=== PATIENT | male | born 1980 | race American Indian/Alaskan Native ===

== ENCOUNTER 2016-07-02 21:38 | Emergency (ER) | payer SELFPAY ==
[2016-07-02 22:14] VITALS: BP 125/92
[2016-07-03 00:21] LABS: Basophils % (Auto) 1.1 % (0.0-1.8); Eosinophils % (Auto) 5.6 % (0.0-4.3); Hemoglobin 14.9 gm/dl (11.8-15.2); Mean Corpuscular HGB Conc 33 % (32-34); Mean Corpuscular Hemoglobin 28 pg (28-32); Mean Corpuscular Volume 84 fl (84-94); Platelet Count 306 K/mm3 (140-440); Red Blood Count 5.39 M/mm3 (3.65-5.03); White Blood Count 6.4 K/mm3 (4.5-11.0)
[2016-07-03 00:22] LABS: BUN/Creatinine Ratio 11.25; Blood Urea Nitrogen 9 mg/dL (9-20); Calcium 8.7 mg/dL (8.4-10.2); Carbon Dioxide 26 mmol/L (22-30); Chloride 100.7 mmol/L (98-107); Glucose 87 mg/dL (75-100); Potassium 3.7 mmol/L (3.6-5.0); Sodium 139 mmol/L (137-145)
[2016-07-03 00:35] LABS: Anion Gap 16 mmol/L
[2016-07-03 03:05] LABS: Urine Drugs of Abuse Note Disclamer
[2016-07-03 03:55] LABS: Bilirubin,Urine NEG (Negative); Blood,Urine NEG (Negative); Ketones,Urine NEG (Negative); Leukocyte Esterase,Urine TR (Negative); Mucus,Urine 3+ /HPF; Nitrite,Urine NEG (Negative); Protein,Urine <15 mg/dL mg/dL (Negative)
--- NOTE | 2016-07-04 04:33 | ED Elopement Review ---
ED Pt Elopement review - Results review Lab results: Laboratory Tests 07/02/16 07/02/16 07/02/16 23:40 23:40 23:40 WBC 6.4 RBC 5.39 H Hgb 14.9 Hct 45.0 MCV 84 MCH 28 MCHC 33 RDW 15.0 Plt Count 306 Lymph % (Auto) 36.4 H [place] % (Auto) 7.6 H Eos % (Auto) 5.6 H Baso % (Auto) 1.1 Lymph # 2.3 [place] # 0.5 Eos # 0.4 Baso # 0.1 Seg Neutrophils % 49.3 Seg Neutrophils # 3.2 Sodium 139 Potassium 3.7 Chloride 100.7 Carbon Dioxide 26 Anion Gap 16 BUN 9 Creatinine 0.8 Estimated GFR > 60 BUN/Creatinine Ratio 11.25 Glucose 87 Calcium 8.7 Troponin T < 0.010 Urine Color Urine Turbidity Urine pH Ur Specific [place] Urine Protein Urine Glucose (UA) Urine Ketones Urine Blood Urine Nitrite Urine Bilirubin Urine Urobilinogen Ur Leukocyte Esterase Urine WBC (Auto) Urine RBC (Auto) U Epithel Cells (Auto) Calcium Oxalate Crystal Amorphous Crystals Urine Mucus Urine Opiates Screen Urine Methadone Screen Ur Barbiturates Screen Ur Phencyclidine Scrn Ur Amphetamines Screen U Benzodiazepines Scrn Urine Cocaine Screen U Marijuana (THC) Screen Drugs of Abuse Note Plasma/Serum Alcohol 07/02/16 07/03/16 07/03/16 23:40 02:03 02:03 WBC RBC Hgb Hct MCV MCH MCHC RDW Plt Count Lymph % (Auto) [place] % (Auto) Eos % (Auto) Baso % (Auto) Lymph # [place] # Eos # Baso # Seg Neutrophils % Seg Neutrophils # Sodium Potassium Chloride Carbon Dioxide Anion Gap BUN Creatinine Estimated GFR BUN/Creatinine Ratio Glucose Calcium Troponin T Urine Color Yellow Urine Turbidity Slightly-cloudy Urine pH 6.0 Ur Specific [place] 1.020 Urine Protein <15 mg/dl Urine Glucose (UA) Neg Urine Ketones Neg Urine Blood Neg Urine Nitrite Neg Urine Bilirubin Neg Urine Urobilinogen 2.0 Ur Leukocyte Esterase Tr Urine WBC (Auto) 14.0 H Urine RBC (Auto) 1.0 U Epithel Cells (Auto) < 1.0 Calcium Oxalate Crystal 3+ Amorphous Crystals 1+ Urine Mucus 3+ Urine Opiates Screen Presumptive negative Urine Methadone Screen Presumptive negative Ur Barbiturates Screen Presumptive negative Ur Phencyclidine Scrn Presumptive negative Ur Amphetamines Screen Presumptive positive U Benzodiazepines Scrn Presumptive negative Urine Cocaine Screen Presumptive positive U Marijuana (THC) Screen Presumptive positive Drugs of Abuse Note Disclamer Plasma/Serum Alcohol < 0.01 - Call Back decision Pt Call Back Decision: No action required
== END 2016-07-02 23:41 | disposition left against medical advice (07) ==
LOC: EEVIPCON 21:38 → ED 21:38
DX: F14.129 Cocaine abuse with intoxication, unspecified (principal); Z53.21 Procedure and treatment not carried out due to patient leaving prior to being seen by health care provider
CPT/HCPCS: 36415; 80048; 80307; 81001; 84484; 85025; 93005; 93010; G0480; 80320

== ENCOUNTER 2016-07-03 08:52 | Emergency (ER) | payer OTHER ==
[2016-07-03 09:57] LABS: Urine Drugs of Abuse Note Disclamer
[2016-07-03 10:07] LABS: Bacteria,Urine 1+ /HPF (Negative); Bilirubin,Urine NEG (Negative); Blood,Urine NEG (Negative); Ketones,Urine NEG (Negative); Leukocyte Esterase,Urine TR (Negative); Mucus,Urine 2+ /HPF; Nitrite,Urine NEG (Negative); Protein,Urine <15 mg/dL mg/dL (Negative); Urobilinogen,Urine < 2.0 mg/dL (<2.0)
[2016-07-03 10:15] LABS: Anion Gap 14 mmol/L; BUN/Creatinine Ratio 6.66; Blood Urea Nitrogen 6 mg/dL (9-20); Calcium 8.9 mg/dL (8.4-10.2); Carbon Dioxide 26 mmol/L (22-30); Chloride 101.8 mmol/L (98-107); Glucose 90 mg/dL (75-100); Potassium 3.8 mmol/L (3.6-5.0); Sodium 138 mmol/L (137-145)
[2016-07-03 10:19] LABS: Basophils % (Auto) 1.1 % (0.0-1.8); Eosinophils % (Auto) 7.7 % (0.0-4.3); Hematocrit 45.6 % (35.5-45.6); Hemoglobin 14.8 gm/dl (11.8-15.2); Mean Corpuscular HGB Conc 32 % (32-34); Mean Corpuscular Hemoglobin 27 pg (28-32); Mean Corpuscular Volume 83 fl (84-94); Platelet Count 306 K/mm3 (140-440); Red Blood Count 5.49 M/mm3 (3.65-5.03); Red Cell Distribution Width 14.7 % (13.2-15.2); White Blood Count 3.6 K/mm3 (4.5-11.0)
--- NOTE | 2016-07-03 12:39 | Emergency Department Report ---
ED Psych HPI - General Chief Complaint: Psych Stated Complaint: MENTAL HEALTH EVALUATION Time Seen by Provider: 07/03/16 12:36 Source: patient, RN notes reviewed Mode of arrival: Ambulatory Limitations: No Limitations - History of Present Illness Initial Comments: This is a 36-year-old male, previously unknown to me. Has a distant history of traumatic brain injury. He reports his psychologist/psychiatrist was Dr. Erika Paul. He reports his neurologist was Dr. Chow, with [facility]. He further reports that he lost his insurance a few weeks ago. To me, he complains of wanting detox from drugs. He is using marijuana, cocaine , and other drugs. He reported suicidality to the triage nurse, but not to me. Patient does not have access to guns or firearms. Patient denies abdominal pain, chest pain, shortness of breath, headache to me. MD Complaint: suicidal ideation -: Gradual Associated Psychiatric Symptoms: suicidal ideation (now resolved) Quality: resolved prior to arrival Improves With: none Worsens With: none Context: not taking psychiatric Associated Symptoms: denies: confusion, headache, shortness of breath, nausea, vomiting, syncope, insomnia If Self Harm: admits thoughts of - Related Data Home Medications Medication Instructions Recorded Confirmed Last Taken ALPRAZolam [Xanax TAB] 0.5 mg PO BID PRN 07/03/16 07/03/16 Unknown Dextroamphetamine/Amphetamine 30 mg PO BID 07/03/16 07/03/16 Unknown [Adderall] [place] Carbonate 600 mg PO BID 07/03/16 07/03/16 Unknown Quetiapine Fumarate [Seroquel] 100 mg PO QHS 07/03/16 07/03/16 Unknown Sertraline [Zoloft] 100 mg PO BID 07/03/16 07/03/16 Unknown Allergies Allergy/AdvReac Type Severity Reaction Status Date / Time No Known Allergies Allergy Verified 07/02/16 22:37 ED Review of Systems ROS: Stated complaint: MENTAL HEALTH EVALUATION Other details as noted in HPI Constitutional: denies: fever, malaise Eyes: denies: vision change ENT: denies: epistaxis Respiratory: denies: SOB with exertion Cardiovascular: denies: chest pain Gastrointestinal: denies: abdominal pain Genitourinary: denies: urgency, dysuria Musculoskeletal: denies: back pain Skin: denies: rash, lesions Neurological: denies: headache, weakness Psychiatric: denies: homicidal thoughts ED Past Medical Hx - Past Medical History Previous Medical History?: No - Social History Smoking Status: Current Every Day Smoker - Medications Home Medications: Home Medications Medication Instructions Recorded Confirmed Last Taken Type ALPRAZolam [Xanax TAB] 0.5 mg PO BID PRN 07/03/16 07/03/16 Unknown History Dextroamphetamine/Amphetamine 30 mg PO BID 07/03/16 07/03/16 Unknown History [Adderall] [place] Carbonate 600 mg PO BID 07/03/16 07/03/16 Unknown History Quetiapine Fumarate [Seroquel] 100 mg PO QHS 07/03/16 07/03/16 Unknown History Sertraline [Zoloft] 100 mg PO BID 07/03/16 07/03/16 Unknown History ED Physical Exam - General Limitations: No Limitations General appearance: alert, in no apparent distress - Head Head exam: Present: atraumatic, normocephalic - Eye Eye exam: Present: normal appearance, EOMI. Absent: nystagmus - ENT ENT exam: Present: normal exam, normal orophraynx, mucous membranes moist - Neck Neck exam: Present: normal inspection, full ROM. Absent: tenderness, meningismus - Respiratory Respiratory exam: Present: normal lung sounds bilaterally. Absent: respiratory distress, wheezes, rales, rhonchi, stridor, chest wall tenderness - Cardiovascular Cardiovascular Exam: Present: regular rate, normal rhythm, normal heart sounds. Absent: bradycardia, tachycardia, irregular rhythm, systolic murmur, diastolic murmur, rubs, gallop - GI/Abdominal GI/Abdominal exam: Present: soft, normal bowel sounds. Absent: distended, tenderness, guarding, rebound, rigid, pulsatile mass - Rectal Rectal exam: Present: deferred - Extremities Exam Extremities exam: Present: normal inspection, full ROM, normal capillary refill. Absent: tenderness, pedal edema, joint swelling, calf tenderness - Back Exam Back exam: Present: normal inspection, full ROM. Absent: tenderness, CVA tenderness (R), CVA tenderness (L), paraspinal tenderness, vertebral tenderness - Neurological Exam Neurological exam: Present: alert, oriented X3, normal gait, other (Extraocular movements intact. Tongue midline. No facial droop. Facial sensation intact to light touch in the V1, V2, V3 distribution bilaterally. 5 and 5 strength in 4 extremities.. Sensation is intact to light touch in 4 extremities.). Absent : motor sensory deficit - Psychiatric Psychiatric exam: Present: suicidal ideation. Absent: homicidal ideation - Skin Skin exam: Present: warm, dry, intact, normal color. Absent: rash ED Course Vital Signs 07/03/16 07/03/16 07/03/16 09:00 09:17 09:19 Temperature 98.1 F 97.9 F Pulse Rate 83 92 H Respiratory 16 15 15 Rate Blood Pressure 134/90 Blood Pressure 126/86 [Right] O2 Sat by Pulse 99 98 98 Oximetry - Reevaluation(s) Reevaluation #1: 07/03/16 12:59 Polysubstance abuse, medical clearance for psychiatric placement, mood disorder Assessment and plan: 36-year-old male admitted history of polysubstance abuse here for detox. The patient is evasive as to whether or not he is truly suicidal. He indicated to the triage nurse that he is suicidal. When I asked him about this, he stated that he is not suicidal now, and that he didn't recall saying that. He then indicated that he said that just to get seen more quickly. The patient has a GCS of 15, with an NIH score of 0, and is clinically sober. His physical exam is unremarkable. Medically, I don't believe the patient has an acute condition that would require immediate intervention at this time. However, I think the patient is on trust where the unreliable regarding his reports of suicidality. Therefore, he will be placed on a 1013. Elopement precautions are initiated, suicide precautions are initiated. The mental health professional is informed. Reevaluation #2: 07/03/16 13:01 This point in time, it does not appear that there is any immediate medical contraindication to psychiatric evaluation/consultation/placement. Reevaluation #3: 07/03/16 14:56 Laboratory studies are unremarkable. Medication reconciliation has been completed by the nurse. At this point in time, I see no immediate medical contraindication to psychiatric admission/evaluation. ED Medical Decision Making - Lab Data Result diagrams: 07/03/16 09:50 07/03/16 09:50 Vital Signs 07/03/16 07/03/16 07/03/16 09:00 09: 09:19 Temperature 98.1 F 97.9 F Pulse Rate 83 92 H Respiratory 16 15 15 Rate Blood Pressure 134/90 Blood Pressure 126/86 [Right] O2 Sat by Pulse 99 98 98 Oximetry Lab Results 07/03/16 07/03/16 07/03/16 Range/Units 09:50 09:50 09:50 WBC 3.6 L (4.5-11.0) K/mm3 RBC 5.49 H (3.65-5.03) M/mm3 Hgb 14.8 (11.8-15.2) gm/dl Hct 45.6 (35.5-45.6) % MCV 83 L (84-94) fl MCH 27 L (28-32) pg MCHC 32 (32-34) % RDW 14.7 (13.2-15.2) % Plt Count 306 (140-440) K/mm3 Lymph % (Auto) 37.1 H (13.4-35.0) % [place] % (Auto) 12.1 H (0.0-7.3) % Eos % (Auto) 7.7 H (0.0-4.3) % Baso % (Auto) 1.1 (0.0-1.8) % Lymph # 1.3 (1.2-5.4) K/mm3 [place] # 0.4 (0.0-0.8) K/mm3 Eos # 0.3 (0.0-0.4) K/mm3 Baso # 0.0 (0.0-0.1) K/mm3 Seg Neutrophils % 42.0 (40.0-70.0) % Seg Neutrophils # 1.5 L (1.8-7.7) K/mm3 Sodium 138 (137-145) mmol/L Potassium 3.8 (3.6-5.0) mmol/L Chloride 101.8 (98-107) mmol/L Carbon Dioxide 26 (22-30) mmol/L Anion Gap 14 mmol/L BUN 6 L (9-20) mg/dL Creatinine 0.9 (0.8-1.5) mg/dL Estimated GFR > 60 ml/min BUN/Creatinine Ratio 6.66 % Glucose 90 (75-100) mg/dL Calcium 8.9 (8.4-10.2) mg/dL Urine Color (Yellow) Urine Turbidity (Clear) Urine pH (5.0-7.0) Ur Specific [place] (1.003-1.030) Urine Protein (Negative) mg/dL Urine Glucose (UA) (Negative) mg/dL Urine Ketones (Negative) mg/dL Urine Blood (Negative) Urine Nitrite (Negative) Urine Bilirubin (Negative) Urine Urobilinogen (<2.0) mg/dL Ur Leukocyte Esterase (Negative) Urine WBC (Auto) (0.0-6.0) /HPF Urine RBC (Auto) (0.0-6.0) /HPF U Epithel Cells (Auto) (0-13.0) /HPF Urine Bacteria (Auto) (Negative) /HPF Urine Mucus /HPF Urine Opiates Screen Urine Methadone Screen Ur Barbiturates Screen Ur Phencyclidine Scrn Ur Amphetamines Screen U Benzodiazepines Scrn Urine Cocaine Screen U Marijuana (THC) Screen Drugs of Abuse Note Plasma/Serum Alcohol < 0.01 (0-0.07) gm% 07/03/16 07/03/16 Range/Units 09:54 09:54 WBC (4.5-11.0) K/mm3 RBC (3.65-5.03) M/mm3 Hgb (11.8-15.2) gm/dl Hct (35.5-45.6) % MCV (84-94) fl MCH (28-32) pg MCHC (32-34) % RDW (13.2-15.2) % Plt Count (140-440) K/mm3 Lymph % (Auto) (13.4-35.0) % [place] % (Auto) (0.0-7.3) % Eos % (Auto) (0.0-4.3) % Baso % (Auto) (0.0-1.8) % Lymph # (1.2-5.4) K/mm3 [place] # (0.0-0.8) K/mm3 Eos # (0.0-0.4) K/mm3 Baso # (0.0-0.1) K/mm3 Seg Neutrophils % (40.0-70.0) % Seg Neutrophils # (1.8-7.7) K/mm3 Sodium (137-145) mmol/L Potassium (3.6-5.0) mmol/L Chloride (98-107) mmol/L Carbon Dioxide (22-30) mmol/L Anion Gap mmol/L BUN (9-20) mg/dL Creatinine (0.8-1.5) mg/dL Estimated GFR ml/min BUN/Creatinine Ratio % Glucose (75-100) mg/dL Calcium (8.4-10.2) mg/dL Urine Color Yellow (Yellow) Urine Turbidity Clear (Clear) Urine pH 6.0 (5.0-7.0) Ur Specific [place] 1.018 (1.003-1.030) Urine Protein <15 mg/dl (Negative) mg/dL Urine Glucose (UA) Neg (Negative) mg/dL Urine Ketones Neg (Negative) mg/dL Urine Blood Neg (Negative) Urine Nitrite Neg (Negative) Urine Bilirubin Neg (Negative) Urine Urobilinogen < 2.0 (<2.0) mg/dL Ur Leukocyte Esterase Tr (Negative) Urine WBC (Auto) 8.0 H (0.0-6.0) /HPF Urine RBC (Auto) 1.0 (0.0-6.0) /HPF U Epithel Cells (Auto) 1.0 (0-13.0) /HPF Urine Bacteria (Auto) 1+ (Negative) /HPF Urine Mucus 2+ /HPF Urine Opiates Screen Presumptive negative Urine Methadone Screen Presumptive negative Ur Barbiturates Screen Presumptive negative Ur Phencyclidine Scrn Presumptive negative Ur Amphetamines Screen Presumptive positive U Benzodiazepines Scrn Presumptive negative Urine Cocaine Screen Presumptive positive U Marijuana (THC) Screen Presumptive positive Drugs of Abuse Note Disclamer Plasma/Serum Alcohol (0-0.07) gm% Critical care attestation.: If time is entered above; I have spent that time in minutes in the direct care of this critically ill patient, excluding procedure time. ED Disposition Clinical Impression: Mood disorder, Polysubstance abuse Disposition: DC/TX PSY HOSP/PSY UNIT Is pt being admited?: No Does the pt Need Aspirin: No Condition: Stable Referrals: PRIMARY CARE, [Primary Care Provider] - 3-5 Days
[2016-07-03] MEDS ORDERED: HALDOL IM PRN (12:52)
[2016-07-03] MEDS ORDERED: ATIVAN IM PRN (12:52)
[2016-07-03] MEDS ORDERED: ESKALITH PO SCH (14:00)
[2016-07-03] MEDS ORDERED: XANAX PO PRN (14:55)
[2016-07-03] MEDS ORDERED: LITHIUM CARBONATE 600 MG PO SCH (15:00)
[2016-07-03] MEDS: AMPHETAMINE PO SCH ×2 (17:42→21:56)
[2016-07-03] MEDS: DEXTROAMPHETAMINE PO SCH ×2 (17:42→21:56)
[2016-07-03] MEDS: ZOLOFT PO SCH ×2 (17:42→22:28)
[2016-07-04] MEDS: DEXTROAMPHETAMINE PO SCH ×2 (10:20→22:00)
[2016-07-04] MEDS: AMPHETAMINE PO SCH ×2 (10:20→22:00)
[2016-07-04] MEDS: ZOLOFT PO SCH ×2 (10:22→22:01)
--- NOTE | 2016-07-04 15:16 | Event Note ---
Date: 07/04/16 Vital signs reviewed. Awaiting psychiatric placement. Vital Signs 07/03/16 07/03/16 07/03/16 09:00 09:17 09:19 Temperature 98.1 F 97.9 F Pulse Rate 83 92 H Respiratory 16 15 15 Rate Blood Pressure 134/90 Blood Pressure 126/86 [Right] O2 Sat by Pulse 99 98 98 Oximetry 07/03/16 21:54 Temperature 98.7 F Pulse Rate 84 Respiratory 18 Rate Blood Pressure Blood Pressure 126/87 [Right] O2 Sat by Pulse 98 Oximetry
[2016-07-04 15:28] VITALS: BP 126/80
== END 2016-07-04 21:30 ==
LOC: EEVIPCON 08:52 → ED 08:52
DX: F39 Unspecified mood [affective] disorder (principal); F19.10 Other psychoactive substance abuse, uncomplicated; F17.200 Nicotine dependence, unspecified, uncomplicated
CPT/HCPCS: 36415; 80048; 80178; 80307; 81001; 82550; 85025; 99285; G0480; 80320